=== PATIENT | male | born 1980 | race Caucasian/White ===

== ENCOUNTER 2017-03-04 15:42 | Emergency (ER) | payer OTHER ==
[2017-03-04] MEDS ORDERED: DIPHTH,PERTUSS(ACELL),TET VAC 0.5 ML VIAL IM ONE ×2 (15:51→16:05)
[2017-03-04 15:52] VITALS: BP 157/101
--- NOTE | 2017-03-04 16:11 | ERNOTE ---
Medical Problem HPI - Narrative Date of Service: 03/04/17 - General Chief Complaint: Laceration Source: patient Exam Limitations: no limitations - Immun/Allergies/Home Medications Allergies/Adverse Reactions: Allergies No Known Allergies Allergy (Unverified 10/04/12 19:06) Home Medications: HOME MEDICATIONS Cephalexin Monohydrate [Keflex] 500 mg PO QID #40 cap 03/04/17 [Last Taken Unknown] - History of Present History Narrative: Pt. lacerated his volar index finger on his L hand while cutting off a tree branch with a bow saw just prior to arrival. Pt. denies any numbness or tingling or decreased movement. Pt. denies any SOB, CP, NVD. Pt. is unsure of when his last tetanus vaccine was. Pt. denies any prehospital treatment other than applied pressure. Modifying Factors - (Improves): Present: other - pressure Modifying Factors - (Worsens): Present: movement Review of Systems - Review of Systems Constitutional: Present: no symptoms reported. Absent: recent illness, fever, chills, weakness, fatigue, malaise EYE: Present: no symptoms reported ENT: Present: no symptoms reported Respiratory: Present: no symptoms reported. Absent: shortness of breath, cough , wheezing Cardiology: Present: no symptoms reported. Absent: chest pain, palpitations, edema Musculoskeletal: Present: no symptoms reported. Absent: back pain, joint pain Skin: Present: other - Laceration L volar index finger Neurological: Present: no symptoms reported. Absent: headache, dizziness/light- headedness, numbness, tingling All Other Systems: All systems neg except as marked - Patient's Past Medical History Patient History - Medical: No pertinent hx Physical Exam - Physical Exam General Appearance: Present: wd/wn, alert, no apparent distress Eye Exam: Normal inspection: bilateral, PERRL: bilateral, EOMI: bilateral Ears, Nose, Throat: Present: normal ENT inspection, normal pharynx Neck: Present: normal inspection, nontender. Absent: lymphadenopathy (R), lymphadenopathy (L) Respiratory: Present: no respiratory distress, normal breath sounds, no accessory muscle use, chest nontender, lungs clear Cardiovascular/Chest: Present: regular rate, rhythm, no murmur, normal peripheral pulses Gastrointestinal/Abdominal: Present: normal bowel sounds, nontender, nondistended, soft, no organomegaly Back Exam: Present: normal inspection, normal range of motion, no CVA tenderness , no vertebral tenderness Extremity Exam: Present: normal range of motion, no edema, other - laceration L volar index finger 2cm in length into subcutaneous linear ED Progress - Vital Signs Patient's Vital Signs:: I have reviewed the patient's vital signs. Vital Signs: Vital Signs 03/04/17 15:49 Temperature 36.2 C L Pulse Rate 18 L Respiratory 16 Rate Blood Pressure 157/101 O2 Sat by Pulse 99 Oximetry - X-Ray X-Ray #1 X-Ray: finger Interpretation: Reviewed by me X-ray Comments: no definable ossious abnormality - Progress/Reassessment Chief Complaint: Laceration Progress:: Improved Procedures Volar Finger 2nd Digit Anesthesia: 1% Lidocaine, Digital Block I & D Prep: betadine prep, sterile drapes applied, sterile dressing applied Wound's Depth/Shape: into subcutaneous, linear Wound Explored: clean Wound Intervention: irrigated w/saline Distal NVT: neuro/vasc intact, no tendon injury Wound Repaired With: sutures Suture Size/Type: 5-0, nylon Number of Sutures: 5 Layer Closure: Simple Wound Dressing: sterile dressing applied, splint applied Complications: Pt octavio procedure well Departure - Departure Clinical Impression: Laceration Disposition: Home self-care Condition: Good Instructions: Laceration Care, Adult, [id number] Additional Instructions: Please follow up with your primary provider in 2-3 days for wound check then have sutures removed in 7-10 days Prescriptions: Cephalexin Monohydrate [Keflex] 500 mg PO QID #40 cap
== END 2017-03-04 16:40 | disposition home or self-care (01) ==
LOC: ER 15:42
PROC: 0JQK0ZZ Repair Left Hand Subcutaneous Tissue and Fascia, Open Approach (ICD-10-PCS; principal; 2017-03-04)
DX: S61.211A Laceration without foreign body of left index finger without damage to nail, initial encounter (principal); W45.8XXA Other foreign body or object entering through skin, initial encounter; W27.8XXA Contact with other nonpowered hand tool, initial encounter; Y93.H9 Activity, other involving exterior property and land maintenance, building and construction; Y92.9 Unspecified place or not applicable; Z23 Encounter for immunization